=== PATIENT | male | born 1950 | race Caucasian/White ===

== ENCOUNTER 2017-01-30 20:12 | Observation (INO) | payer OTHER ==
[~2017-01-30] VITALS: Ht 175.3 cm; Wt 111.3 kg
[~2017-01-30 20:12] MED LIST: ACTOS45 MG PO; ASPIR-LOW81 MG PO; CINNAMON500 MG PO; CLEOCIN300 MG PO; DUTASTERIDE0.5 MG PO; GLIPIZIDE XL10 MG PO; HYDROCODON-ACE1 EAC7 PO; KEFLEX500 MG PO; LOTRIMIN ULTRA12 GM TP; OMEPRAZOLE40 M1 PO; ONE-A-DAY ESSE1 EAC1 PO; OSTEO BI-FLEX1 EAC1 PO; RAMIPRIL5 MG PO; SIMVASTATIN40 MG PO; TYLENOL EXTRA500 MG PO; VICTOZA 2-0.6 MG/0.1 SC
[2017-01-30 21:06] LABS: HEMATOCRIT 42.3 % (38.0-50.0); MCH 31.8 PG (29.0-34.0); MCHC 33.1 G/DL (30.0-36.0); MCV 96.1 FL (86-99); MEAN PLAT.VOLUME 9.8 uM^3 (9.0-12.4); PLATELET COUNT 195 K/uL (156-360); RBC DIS.WIDTH-CV 12.7 % (11.8-14.6); RBC DIS.WIDTH-SD 44.7 % (39-53); WHITE BLOOD COUNT 7.2 K/uL (4.1-10.2)
[2017-01-30 21:23] LABS: CHLORIDE 105 mEq/L (99-109); POTASSIUM 4.2 mEq/L (3.7-5.4); SODIUM 142 mEq/L (136-147)
[2017-01-30 21:24] LABS: GLUCOSE 165 mg/dL (70-99)
[2017-01-30 21:26] LABS: ANION GAP 10 MEQ/L (2-14)
[2017-01-30 21:28] LABS: GFR ESTIMATE (CALCULATED) > 59 mL/min/
[2017-01-30 21:29] LABS: TROP-I INTERPRETATION NEGATIVE; TROPONIN-I < 0.01 ng/mL (0.0-0.30); UREA NITROGEN (BUN) 22 mg/dL (9-23)
[2017-01-30] MEDS ORDERED: RAMIPRIL2.5 MG PO (22:54)
[2017-01-30] MEDS ORDERED: VITAMIN B-125000 MC1 PO (22:55)
[2017-01-30] MEDS ORDERED: SIMVASTATIN20 MG PO (22:55)
[2017-01-30] MEDS ORDERED: CIALIS5 MG PO (22:56)
[2017-01-30] MEDS ORDERED: ASPIRIN81 M2 PO (22:57)
[2017-01-31 01:04] LABS: TOTAL BILIRUBIN 0.5 mg/dL (0.0-1.0)
[2017-01-31 01:05] LABS: ALKALINE PHOSPHATASE 88 IU/L (3-129)
[2017-01-31 01:07] LABS: DIRECT BILIRUBIN 0.2 mg/dL (0.0-0.3)
[2017-01-31 01:16] VITALS: BP 158/91
[2017-01-31 01:31] LABS: INFLUENZA A VIRAL ANTIGEN NEGATIVE; INFLUENZA B VIRAL ANTIGEN NEGATIVE
[2017-01-31 03:55] VITALS: BP 136/80
[2017-01-31 04:36] LABS: TROP-I INTERPRETATION NEGATIVE; TROPONIN-I < 0.01 ng/mL (0.0-0.30)
[2017-01-31 04:47] LABS: HDL CHOLESTEROL 57 MG/DL (Desirable>=40); LDL CHOLESTEROL 94 mg/dL (Desirable<100); NON-HDL CHOLESTEROL 101 mg/dL (Desirable<160); TOTAL CHOLESTEROL 158 mg/dL (Desirable<200); TRIGLYCERIDES 37 MG/DL (Normal: <150)
[2017-01-31 07:45] VITALS: BP 145/81
[2017-01-31 08:02] LABS: POINT-OF-CARE METER ID UU14162513
[2017-01-31 08:14] LABS: ALKALINE PHOSPHATASE 98 IU/L (3-129); ANION GAP 8 MEQ/L (2-14); CHLORIDE 109 MEQ/L (99-109); GFR ESTIMATE (CALCULATED) > 59 mL/min/; GLUCOSE 130 mg/dL (70-99); POTASSIUM 4.3 MEQ/L (3.7-5.4); SODIUM 142 MEQ/L (136-147); TOTAL BILIRUBIN 0.6 MG/DL (0.0-1.0); UREA NITROGEN (BUN) 20 mg/dL (9-23)
[2017-01-31 09:50] LABS: TROP-I INTERPRETATION NEGATIVE; TROPONIN-I < 0.01 ng/mL (0.0-0.30)
[2017-01-31] MEDS ORDERED: FLOMAX0.4 MG PO (10:39)
[2017-01-31] MEDS ORDERED: ADVIL200 MG PO (10:41)
[2017-01-31 11:30] VITALS: BP 130/73
[2017-01-31 11:57] LABS: POINT-OF-CARE METER ID UU13113831
== END 2017-01-31 14:07 | disposition home or self-care (01) ==
LOC: EME 20:12 → 5WEST 23:10 → EDOF 23:54 → ENRESERV 23:58 → ENPENDDIS 01-31 → ENRESERV 01-31 00:38 → 5WEST 01-31 01:12
PROVIDERS: Hospitalist; Physician Assistant Medical
DX: R07.89 Other chest pain (principal); R74.0 Nonspecific elevation of levels of transaminase and lactic acid dehydrogenase [LDH]; I10 Essential (primary) hypertension; E78.5 Hyperlipidemia, unspecified; E11.9 Type 2 diabetes mellitus without complications; Z87.891 Personal history of nicotine dependence; Z98.84 Bariatric surgery status; R11.0 Nausea; R42 Dizziness and giddiness; G89.29 Other chronic pain; Z86.19 Personal history of other infectious and parasitic diseases; K21.9 Gastro-esophageal reflux disease without esophagitis; M25.50 Pain in unspecified joint; E66.01 Morbid (severe) obesity due to excess calories; Z68.36 Body mass index [BMI] 36.0-36.9, adult; R10.11 Right upper quadrant pain; Z79.84 Long term (current) use of oral hypoglycemic drugs; Z79.82 Long term (current) use of aspirin; Z79.899 Other long term (current) drug therapy; Z82.3 Family history of stroke
CPT/HCPCS: 71020; 76705; 80048; 80053; 80061; 80076; 82948; 84484; 85027; 87502; 93005; 99281; 99285; G0378

== ENCOUNTER 2017-12-12 15:28 | Emergency (ER) | payer OTHER ==
[~2017-12-12] VITALS: Ht 177.8 cm; Wt 117.3 kg
[~2017-12-12 15:28] MED LIST changes: +ADVIL200 MG PO; +ASPIRIN81 M2 PO; +CIALIS5 MG PO; +FLOMAX0.4 MG PO; +RAMIPRIL2.5 MG PO; +SIMVASTATIN20 MG PO; +VITAMIN B-125000 MC1 PO
[2017-12-12 16:07] LABS: BASOPHIL (%) 0.4 % (0-1); EOSINOPHIL (%) 0.1 % (0-5); HEMATOCRIT 41.4 % (38.0-50.0); HEMOGLOBIN 13.9 G/DL (12.5-16.6); IMMATURE GRANULOCYTE (%) 0.1 % (0.0-0.7); LYMPHOCYTE (%) 14.4 % (15-42); LYMPHOCYTE COUNT 1.1 K/uL (1.0-2.8); MCH 31.7 PG (29.0-34.0); MCHC 33.6 G/DL (30.0-36.0); MCV 94.5 FL (86-99); MONOCYTE (%) 9.5 % (3-12); MONOCYTE COUNT 0.7 K/uL (0-0.8); NEUTROPHIL (%) 75.5 % (45-76); NEUTROPHIL COUNT 5.7 K/uL (1.8-6.4); PLATELET COUNT 163 K/uL (156-360); RBC DIS.WIDTH-CV 12.4 % (11.8-14.6); RBC DIS.WIDTH-SD 43.2 % (39-53); RED BLOOD COUNT 4.38 M/uL (4.00-5.50); WHITE BLOOD COUNT 7.5 K/uL (4.1-10.2)
[2017-12-12 16:15] LABS: CHLORIDE 106 mEq/L (99-109); POTASSIUM 3.8 mEq/L (3.7-5.4); SODIUM 138 mEq/L (136-147)
[2017-12-12 16:17] LABS: GLUCOSE 141 mg/dL (70-99)
[2017-12-12 16:21] LABS: CREATININE 0.8 mg/dL (0.6-1.3); GFR ESTIMATE (CALCULATED) > 59 mL/min/ (58.99-99999); UREA NITROGEN (BUN) 15 mg/dL (9-23)
[2017-12-12] MEDS ORDERED: BACTRIM,SEPT1 TABLET PO (17:11)
[2017-12-12] MEDS ORDERED: KEFLEX500 MG PO (17:11)
[2017-12-12 17:37] VITALS: BP 139/79
== END 2017-12-12 17:30 | disposition home or self-care (01) ==
LOC: EME 15:28
DX: L03.115 Cellulitis of right lower limb (principal); E11.9 Type 2 diabetes mellitus without complications; I10 Essential (primary) hypertension; E78.5 Hyperlipidemia, unspecified; Z87.891 Personal history of nicotine dependence; Z79.82 Long term (current) use of aspirin
CPT/HCPCS: 73630; 80048; 83605; 85025; 87040; 99281; 99284